=== PATIENT | male | born 1970 ===

== ENCOUNTER 2021-01-29 12:26 | Emergency (ER) | payer MEDICAID, SELFPAY ==
[2021-01-29 12:32] VITALS: BP 124/85; PULSE 84; RESP 18; TEMP 36.6; O2SAT 99
--- NOTE | 2021-01-29 13:24 | ED.GENADULT ---
HPI - General Adult General Chief complaint: Skin/Abscess/Foreign Body Stated complaint: rash Time Seen by Provider: 01/29/21 13:23 Source: patient Mode of arrival: ambulatory Limitations: no limitations History of Present Illness HPI narrative: 50-year-old male is here today for complaining of rash to lower abdominal area and in good in all areas bilaterally. Patient reports that he has been seen by his PCP almost a week ago and was diagnosed with fungal rash. Was given clotrimazole cream and he reports that has been not helpful. Denies any drainage, reports pruritus. Patient has not taking Benadryl. No new soaps or laundry detergents. Patient reports that he keeps his clothes in the basement. No other areas on his body is is affected. Onset (ago): day(s) Location: abdomen (Lower abdomen and inguinal areas bilaterally) Quality: other (Pruritus) Pain Consistency: other (No pain) Associated symptoms: rash Related Data Previous Rx's Medication Instructions Recorded diphenhydramine HCl 25 mg capsule 25 mg PO TID PRN #30 cap 01/29/21 (Benadryl) nystatin-triamcinolone 100,000 1 appl TOPICAL BID #30 g 01/29/21 unit/g-0.1 % topical cream Allergies Allergy/AdvReac Type Severity Reaction Status Date / Time No Known Allergies Allergy Unverified 12/04/19 16:48 Review of Systems Review of Systems: Constitutional : No Weight loss, No Fever, No Chills, No Night Sweats, No Fatigue, No Malaise ENT/Mouth : No Hearing loss, No Ear Pain, No Nasal Congestion, No Sinus Pain, No Hoarseness, No sore throat, No Rhinorrhea, No Swallowing Difficulty Eyes: No Eye Pain, No Swelling, No Redness, No Foreign Body, No Discharge, No Vision Changes Cardiovascular : No Chest Pain, No SOB, No Dyspnea on Exertion, No Orthopnea, No Edema, No Palpitations Respiratory : No Cough, No Sputum, No Wheezing, No Smoke Exposure, No Dyspnea Gastrointestinal : No Nausea, No Vomiting, No Diarrhea, No Constipation, No abdominal Pain, No Hematochezia, No Melena Genitourinary : no irregular bleeding, No Dysuria, No Urinary Frequency, No Hematuria, No Urinary Incontinence, No Urgency, No Flank Pain, No Urinary Flow Changes, No Hesitancy Musculoskeletal : No joint pain, No Myalgias, No Joint Swelling Skin : No Skin Lesions, rash to lower abdomen and inguinal area bilaterally Neuro : No Weakness, No Numbness, No Paresthesias, No Loss of Consciousness, No Dizziness, No Headache Psych : No Anxiety/Panic, No Depression, No SI/HI/AH/VH, No Social Issues, Yes all other systems are reviewed and are negative PMFSH Social History Social History Advance Directives: No Advance Directives Information Provided: No Physical Exam Vital Signs: Vital Signs: Last Vital Signs Temp 97.8 F 01/29/21 12:32 Pulse 84 01/29/21 12:32 Resp 18 01/29/21 12:32 BP 124/85 01/29/21 12:32 Pulse Ox 99 01/29/21 12:32 Body Mass Index 30.0 Const: General: healthy appearing, no acute distress and well developed Nutritional Appearance: well nourished Orientation/consciousness: patient oriented x3 HENMT: Head: Yes normal to inspection, Yes normocephalic and Yes atraumatic Face and sinus: Yes normal facial exam Mouth: Normal oral and palatal mucosa present Throat: Yes posterior oropharynx normal, Yes tonsils normal and Yes uvula midline Eyes: General: appearance normal, both eyes and all related structures Neck: Neck: Yes normal visual inspection, Yes full ROM and Yes trachea midline Thyroid: Thyroid normal Resp: Effort & Inspection: normal respiratory effort, able to speak in complete sentences, no tracheal deviation and symmetric chest movement Auscultation: clear to auscultation bilaterally Cardio: Jugular venous distension: no JVD Rate: regular rate Rhythm: regular rhythm Heart sounds: S1 normal heart sound present, S2 normal heart sound present, no gallops and no murmurs GI: Inspection: Yes normal to inspection and No distended Palpation (GI): Soft to palpation, not firm, nontender and No hepatosplenomegaly present Auscultation: normal bowel sounds : General: Yes no CVA tenderness Back/Spine/Pelvis: Back: no CVA tenderness Skin: General skin exam: elasticity normal, turgor normal, dry skin and other (Fungal rash to lower abdomen and bilateral inguinal areas) Hair: normal Nails: normal Neuro: General: patient oriented x3 Psych: Appearance: grossly normal Mental Status: mental status grossly normal Speech and movement: Normal speech and movement present Affect: normal affect Attitude: cooperative Thought process: Normal thought process present Thought content: Normal thought content present Insight: Good insight present (Psych) Judgement: Good judgement present (Psych) Course Course Course Narrative: Inguinal and lower abdomen rash, seen by PCP 1 week ago and was put on clotrimazole. Patient reports that the cream is not working. Discussed with patient the importance of keeping the area dry. I will start him on nystatin/triamcinolone cream. If rash persists patient should go see industrial order clerk and follow-up with his PCP Discharge Plan Discharge Clinical Impression: Fungal dermatitis Patient Disposition: Home, Self-Care Instructions: Harsh Itch (ED) Additional Instructions: You were seen here today for fungal infection on your lower abdomen. You were given nystatin/triamcinolone cream. Please follow-up with your primary care doctor if your symptoms will not go away in 3-4 days despite the treatment. Please keep the area dry and clean. You may take Benadryl to decrease the itch. If your symptoms will continue you might need to see industrial order clerk Prescriptions: New diphenhydramine HCl [Benadryl] 25 mg capsule 25 mg PO TID PRN (Reason: itching) Qty: 30 RF: 0 nystatin-triamcinolone 100,000-0.1 unit/g-% cream 1 appl topical BID Qty: 30 RF: 0 Interventions: ED Discharge Assessment Last Done: 01/29/21 14:05 Discharge Date/Time: 01/29/21 14:05
[2021-01-29] MEDS: Nystatin/Triamcinolone Cream 15 GM TUBE 1 APPL TOPICAL (13:57)
== END 2021-01-29 14:05 | disposition home or self-care (01) ==
PROVIDERS: Emergency Provider Emergency Medicine Emergency Medical Services
DX: B36.9 Superficial mycosis, unspecified (principal); R21 Rash and other nonspecific skin eruption; Z79.899 Other long term (current) drug therapy
CPT/HCPCS: 99283

== ENCOUNTER 2021-02-16 11:15 | Outpatient (REF) | payer MEDICAID, SELFPAY | END 2021-02-16 11:16 | disposition home or self-care (01) | LOC: HO.LAB 11:15 | PROVIDERS: Visit Provider Internal Medicine | DX: Z20.822 Contact with and (suspected) exposure to COVID-19 (principal) | CPT/HCPCS: C9803; U0003; U0005 ==

== ENCOUNTER 2023-11-09 13:34 | Outpatient (AMB) | payer OTHER, SELFPAY ==
[2023-11-09 13:37] VITALS: BP 118/74; PULSE 68; O2SAT 97
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
== END 2023-11-09 14:10 | disposition home or self-care (01) ==
DX: Z00.00 Encounter for general adult medical examination without abnormal findings (principal); E78.00 Pure hypercholesterolemia, unspecified; R07.89 Other chest pain; R21 Rash and other nonspecific skin eruption
CPT/HCPCS: 99386

== ENCOUNTER 2023-11-16 09:09 | Outpatient (REF) | payer OTHER, SELFPAY ==
[2023-11-16 09:27] LABS: MANUAL DIFF FLAG NO
[2023-11-16 10:52] LABS: Basophils Percent Auto 0.7 % (0-2); Eosinophils Absolute Auto 0.4 X10*3/uL (0.0-0.4); Eosinophils Percent Auto 8.5 % (0-4); Hematocrit 42.3 % (42.0-52.0); Hemoglobin 14.8 g/dl (14.0-18.0); Imm Gran Abs Auto 0.01 X10*3/uL (0.00-0.03); Imm Gran Pct Auto 0.2 % (0.0-0.4); Lymphocytes Absolute Auto 1.1 X10*3/uL (1.2-4.9); Lymphocytes Percent Auto 24.5 % (20-40); Mean Corpuscular Hemoglobin 31.6 pg (27.0-33.0); Mean Corpuscular Volume 90.4 fL (80.0-98.0); Monocytes Absolute Auto 0.4 X10*3/uL (0.1-1.2); Monocytes Percent Auto 10.1 % (2-11); Neutrophils Absolute Auto 2.5 x10*3/uL (2.0-8.3); Platelet Count 210 X10*3/uL (160-400); Red Blood Count 4.68 X10*6/uL (4.60-5.80); Red Cell Distribution Width 12.2 % (11.0-16.0); White Blood Count 4.4 X10*3/uL (4.8-10.8)
[2023-11-16 12:04] LABS: Alanine Aminotransferase 20 U/L (0-40); Albumin Level 4.4 g/dL (3.5-5.0); Alkaline Phosphatase 51 U/L (39-117); Anion Gap 6 (12-20); Aspartate Amino Transferase 16 U/L (5-37); Bilirubin Total 0.5 mg/dL (0.0-1.0); Blood Urea Nitrogen 15 mg/dL (9-16); Calcium 9.6 mg/dL (8.4-10.2); Carbon Dioxide 30 mmol/L (22-29); Chloride 107 mmol/L (96-108); Cholesterol 243 mg/dL (<200); Estimated Glomerular Filt Rate > 60; Glucose Random 86 mg/dL (60-115); HDL Cholesterol 42 mg/dL (>40); LDL Cholesterol Calculated 171 mg/dL (<100); Potassium 4.3 mmol/L (3.3-5.1); Sodium 139 mmol/L (135-145); Total Protein 7.7 g/dL (6.5-8.0); Triglycerides 150 mg/dL (<150)
[2023-11-16 12:19] LABS: Folate 10.9 ng/mL (> or = 4.0); Prostate Specific Antigen Scr 0.45 ng/mL (<0.05-4.0); Vitamin B12 309 pg/mL (200-900)
[2023-11-16 12:26] LABS: Free T4 (Free Thyroxine) 0.71 ng/dL (0.71-1.85); TSH reflex Free T4 1.74 uIU/mL (0.32-4.0)
[2023-11-22 15:13] LABS: Vitamin D 25-OH, D2 <4 ng/mL; Vitamin D 25-OH, D3 25 ng/mL; Vitamin D 25-OH, Total 25 ng/mL (30-100)
== END 2023-11-16 09:10 | disposition home or self-care (01) ==
LOC: HO.LAB 09:09
DX: Z00.00 Encounter for general adult medical examination without abnormal findings (principal); Z12.5 Encounter for screening for malignant neoplasm of prostate
CPT/HCPCS: 36415; 80053; 80061; 82306; 82607; 82746; 84153; 84439; 84443; 85025

== ENCOUNTER 2024-01-15 08:50 | Outpatient (REF) | payer OTHER, SELFPAY ==
--- NOTE | 2024-01-15 09:21 | PFT_ITS ---
Indication: Not available Spirometry [FEV1 to FVC 85%; FEV1 2.28 L; FVC 2.69 L. No significant response to bronchodilators noted. FEF 08/05/2074 is down to 53% predicted. ] Lung Volumes [Total lung capacity 68% predicted; expiratory reserve volume 46% predicted] Diffusion Capacity [DLCO 84% predicted] Comparisons [None] Interpretation [There is any restrictive ventilatory defect consistent with moderate restrictive lung disease. Etiology of this restriction is not clear at this time. No evidence of any obstruction and no significant response to bronchodilators noted. Although there is some evidence of small airways disease. The patient does have a mild diffusion impairment, although, it does correct to normal when corrected for the alveolar volume. Further imaging warranted. Would recommend pulmonary consultation. Clinical correlation warranted.] MTDD
[2024-01-15 10:14] VITALS: PULSE 60; RESP 16; O2SAT 99
== END 2024-01-15 08:51 | disposition home or self-care (01) ==
LOC: HO.RESP 08:50
DX: R07.89 Other chest pain (principal); R06.02 Shortness of breath
CPT/HCPCS: 94010; 94640; 94727; 94729

== ENCOUNTER → 2024-01-15 09:21 | Outpatient (BNV) | payer OTHER, SELFPAY | PROVIDERS: Visit Provider Hospitalist | DX: R06.02 Shortness of breath (principal); R07.89 Other chest pain | CPT/HCPCS: 94060; 94727; 94729 ==

== ENCOUNTER 2024-02-26 14:19 | Outpatient (AMB) | payer OTHER, SELFPAY ==
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
[2024-02-26 14:23] VITALS: BP 132/74; PULSE 62; O2SAT 97; BMI 35.0
== END 2024-02-26 14:50 | disposition home or self-care (01) ==
DX: R06.02 Shortness of breath (principal); E78.00 Pure hypercholesterolemia, unspecified

== ENCOUNTER 2024-03-05 15:14 | Outpatient (AMB) | payer OTHER, SELFPAY ==
[2024-03-05 15:15] VITALS: BP 102/62; PULSE 73; O2SAT 98; BMI 30.2
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
== END 2024-03-05 15:44 | disposition home or self-care (01) ==
PROVIDERS: Visit Provider Internal Medicine Pulmonary Disease
DX: R94.2 Abnormal results of pulmonary function studies (principal); R06.09 Other forms of dyspnea; J84.9 Interstitial pulmonary disease, unspecified; R07.89 Other chest pain
CPT/HCPCS: 99204

== ENCOUNTER → 2024-03-05 15:14 | Outpatient (BNVA) | payer OTHER, SELFPAY | PROVIDERS: Visit Provider Internal Medicine Pulmonary Disease ==

== ENCOUNTER 2024-04-08 13:13 | Outpatient (REF) | payer OTHER, SELFPAY ==
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
--- OUTSIDE RECORDS SUMMARY | 2024-04-08 14:58 | XMS_ITS | Clinical Summary ---
Author Organization [employer] Address [address] [place] [address] Care Team Providers Care Psychologists Name Role Phone Krysta Davis Primary Care Provider [phone] Social History Tobacco Use Types Packs/Day Years Used Date Smoking Tobacco: Never Assessed Sex and Gender Information Value Date Recorded Sex Assigned at Male 01/16/2022 10:16 AM EDT Legal Sex Male 10:16 AM EDT Gender Identity Male 01/16/2022 10:16 AM EDT Sexual Orientation Choose not to disclose 2021 10:16 AM EDT Last Filed Vital Signs Vital Sign Reading Time Taken Comments Blood Pressure 116/70 09/29/2021 12:07 AM EDT Pulse 67 09/29/2021 12:07 AM EDT Temperature - - Respiratory Rate - - Oxygen Saturation - - Inhaled Oxygen Concentration - - Weight 80.6 kg (177 lb 12.8 oz) 022 12:07 AM EDT Height 164.5 cm (5' 4.75 ) 09/29/2021 1 2:07 AM EDT Body Mass Index 29.81 09/29/2021 12:07 AM EDT Plan of Treatment Health Maintenance Due Date Last Done Comments CT Colonography 1972 Colonoscopy 1972 Colorectal Cancer Screening 1972 Depression Screening 1972 FIT DNA/Cologuard 1972 FIT 1972 FOBT 1972 SDOH Screening 1972 Sigmoidoscopy 1972 Alcohol/Substance Use Screening 1984 Tobacco Screening 1984 Hepatitis B Vaccines (1 of 3 - 19+ 3-dose series) 12/11/1991 Dental X-Ray: Full Mouth 11/25/2013 11/24/2010 Dental Oral Exam 06/09/2016 2015, , 01/03/2013, Additional history exists Dental X-Ray: Bitewings 2016 12/10/19 16, 12/06/2012, 11/24/2010 Dental Prophylaxis 11/02/2017 05/04/2017, 0 10/30/2016, 02/04/2016, Additional history exists Zoster Vaccines (1 of 2) 2022 COVID-19 Vaccine (3 - season) 2023 07/28/2020, 06/30/2020 Influenza Vaccine (#1) 2023 03/02/2021 Lipid Panel 03/08/2026 03/08/2021 DTaP/Tdap/Td Vaccines (3 - Td or Tdap) 03/02/2031 03/02/2021, 03/31/2016 RSV Patients and Patients Aged 60 years or older (1 - 1-dose 75+ series) 12/11/2047 HIV Screening Completed 03/08/2021 Hepatitis C Screening Completed 03/08/2021 HIB Vaccines Aged Out No longer eligi ble based on patient's age to complete this topic HPV Vaccines Aged Out No longer eligi ble based on patient's age to complete this topic Hepatitis A Vaccines Aged Out No long er eligible based on patient's age to complete this topic IPV Vaccines Aged Out No longer eligi ble based on patient's age to complete this topic Meningococcal Vaccine Aged Out No kim jemal eligible based on patient's age to complete this topic Pneumococcal Vaccine: Pediatrics (0 to 5 Years) and At-Risk Patients (6 to 64 Years) Aged Out No longer eligible based on patient's age to complete this topic RSV under 20 months Aged Out No longe r eligible based on patient's age to complete this topic Rotavirus Vaccines Aged Out No longer eligible based on patient's age to complete this topic Procedures Procedure Name Priority Date/Time Associated Diagnosis Comments ZZZ HISTORICAL HEPATITIS C AB W/REFL TO HCV RNA, QN, PCR Routine 03/08/2021 9:56 AM EST HIV 1/2 ANTIGEN/ANTIBODY, FOURTH GENERATION W/RFL Routine 03/08/2021 9:56 AM EST LIPID PANEL, STANDARD Routine 03/08/2021 9:56 AM EST PROPHYLAXIS - ADULT Routine 05/04/2017 1 2:00 AM EST BITEWINGS - 4 RADIOGRAPHIC IMAGES Routine 2015 12:00 AM EDT PERIODIC ORAL EVALUATION - ESTABLISHED PATIENT Routine 2015 12:00 AM EDT DIAGNOSTIC - DIAGNOSTIC IMAGING - INTRAORAL - COMPREHENSIVE SERIES OF RADIOGRAPHIC IMAGES Routine 11/24/2010 12:00 AM EDT from Last 3 Months or Most Recently Relevant to Health Maintenance Results * HEPATITIS C AB W/REFL TO HCV RNA, QN, PCR (03/08/2021 9:56 AM EST) HEPATITIS C ANTIBODY NON-REACT TYRONE NON-REACT TYRONE [facility] INDEX 0.01 <1.00 [facility] Comment: ?? HCV antibody was non-reactive. There is no laboratory ?? evidence of HCV infection. ?? In most cases, no further action is required. However, if recent HCV exposure is suspected, a test for HCV RNA (test code 53859) is suggested. ?? For additional information please refer to http://education.PassHat/faq/KFE93q8 (This link is being provided for informational/ educational purposes only.) ?? 03/08/2021 9:56 AM EST us Dejah Good MD HISTORICAL/NON ORDERABLE LAB S Final Result Performing Organization Address City/State/[facility] Co de Phone Number [facility] [address] * HIV 1/2 ANTIGEN/ANTIBODY,FOURTH GENERATION W/RFL (03/08/2021 9:56 AM EST) HIV-1/2 ANTIGEN AND ANTIBODIES, 4TH GENERATION W/ REFLEX NON-REACT TYRONE NON-REACT TYRONE [facility] Comment: HIV-1 antigen and HIV-1/HIV-2 antibodies were not detected. There is no laboratory evidence of HIV infection. ?? PLEASE NOTE: This information has been disclosed to you from records whose confidentiality may be protected by state law. ??If your state requires such protection, then the state law prohibits you from making any further disclosure of the information without the specific written consent of the person to whom it pertains, or as otherwise permitted by law. A general authorization for the release of medical or other information is NOT sufficient for this purpose. ? For additional information please refer to http://SeatID.PassHat/faq/UNL682 (This link is being provided for informational/ educational purposes only.) ? The performance of this assay has not been clinically validated in patients less than 2 years old. ?? 03/08/2021 9:56 AM EST us Dejah Good MD LAB BLOOD ORDERABLES Final R esult [facility] [address] * (ABNORMAL) LIPID PANEL, STANDARD (03/08/2021 9:56 AM EST) Chol/HDLC Ratio 6.3(H) <5.0 (calc) [facility] Cholesterol, Total 239(H) <200 mg/dL [facility] HDL Cholesterol 38(L) > OR = 40 mg/dL [facility] LDL Cholesterol 170(H) mg/dL (calc) [facility] Comment: Reference range: <100 ?? Desirable range <100 mg/dL for primary prevention; ?? <70 mg/dL for patients with CHD or diabetic patients ?? with > or = 2 CHD risk factors. ?? LDL-C is now calculated using the Warren ?? calculation, which is a validated novel method providing ?? better accuracy than the Friedewald equation in the ?? estimation of LDL-C. ?? Elfego BRAY et al. JASMIN. 2013;310(19): 6348-7975 ?? (http://SeatID.Risktail/faq/IMF390) Non-HDL Cholesterol 201(H) <130 mg/dL (calc) [facility] Comment: For patients with diabetes plus 1 major ASCVD risk ?? factor, treating to a non-HDL-C goal of <100 mg/dL ?? (LDL-C of <70 mg/dL) is considered a therapeutic ?? option. Triglycerides 160(H) <150 mg/dL [facility] 03/08/2021 9:56 AM EST us Dejah Good MD LAB BLOOD ORDERABLES Final R esult [facility] [address] from Last 3 Months or Most Recently Relevant to Health Maintenance Insurance DENTAL - HSN FULL (MEDICAID) Care Teams Psychologists Relationship Specialty Start Date End Date Krysta Davis ANP [address] [place] [id number] PCP - General Family Medicine 11/30/22
== END 2024-04-08 13:14 | disposition home or self-care (01) ==
LOC: HO.XRAY 13:13
PROVIDERS: Visit Provider Internal Medicine Pulmonary Disease
DX: R06.02 Shortness of breath (principal)
CPT/HCPCS: 71046

== ENCOUNTER → 2024-04-08 13:19 | Outpatient (BNV) | payer OTHER, SELFPAY | PROVIDERS: Visit Provider Radiology Diagnostic Radiology | DX: R06.02 Shortness of breath (principal) | CPT/HCPCS: 71046 ==

== ENCOUNTER 2024-04-11 13:28 | Outpatient (REF) | payer OTHER, SELFPAY ==
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
--- OUTSIDE RECORDS SUMMARY | 2024-04-11 15:12 | XMS_ITS | Clinical Summary ---
Author Organization [employer] Address [address] [facility] [facility] [address] [place] [address] Care Team Providers Care [employer] Name Role Phone Krysta Davis Primary Care Provider [phone] Social History Tobacco Use Types Packs/Day Years [...] Alcohol/Substance Use Screening 1984 Tobacco Screening 1984 Family Planning (PISQ) 12/11/1987 Hepatitis B Vaccines (1 of 3 - 19+ 3-dose series) 12/11/1991 Dental X-Ray: Full Mouth 11/25/2013 11/24/2010 Dental Oral Exam 06/09/2016 2015, , 01/03/2013, Additional history exists Dental X-Ray: Bitewings 2016 12/10/19 16, 12/06/2012, 11/24/2010 Dental Prophylaxis 11/02/2017 05/04/2017, 0 10/30/2016, 02/04/2016, Additional history exists Zoster Vaccines (1 of 2) 2022 COVID-19 Vaccine (3 - 2023- season) 2023 07/28/2020, 06/30/2020 Influenza Vaccine (#1) [...] HEPATITIS C ANTIBODY NON-REACT TYRONE NON-REACT TYRONE [facility] INDEX 0.01 <1.00 [facility] Comment: ?? HCV antibody was non-reactive. There is no laboratory ?? evidence of HCV infection. ?? In most cases, no further action is required. However, if recent HCV exposure is suspected, a test for HCV RNA (test code 55208) is suggested. ?? For additional information please refer to http://education.JBI Fish & Wings.Expand Networks/faq/NIT15w3 (This link is being provided for informational/ educational purposes only.) ?? 03/08/2021 9:56 AM EST us Dejah Good MD HISTORICAL/NON ORDERABLE LAB S Final Result [facility] [address] * HIV 1/2 ANTIGEN/ANTIBODY,FOURTH GENERATION W/RFL (03/08/2021 9:56 AM EST) HIV-1/2 ANTIGEN AND ANTIBODIES, 4TH GENERATION W/ REFLEX NON-REACT TYRONE NON-REACT TYRONE [facility] Comment: HIV-1 antigen and HIV-1/HIV-2 [...] ? For additional information please refer to http://Sunnyloft.Jobfox/faq/KCG233 (This link is being provided for informational/ educational purposes only.) ? The performance of this assay has not been clinically validated in patients less than 2 years old. ?? 03/08/2021 9:56 AM EST us Dejah Good MD LAB BLOOD ORDERABLES Final R esult Performing Organization Address City/State/[facility] Co de Phone Number [facility] [address] * (ABNORMAL) LIPID PANEL, STANDARD (03/08/2021 [...] ?? Elfego BRAY et al. JASMIN. 2013;310(19): 1464-8623 ?? (http://education.Predictvia.Expand Networks/faq/RYT539) Non-HDL Cholesterol 201(H) <130 mg/dL (calc) [facility] Comment: For patients with diabetes plus 1 major ASCVD risk ?? factor, treating to a non-HDL-C goal of <100 mg/dL ?? (LDL-C of <70 mg/dL) is considered a therapeutic ?? option. Triglycerides 160(H) <150 mg/dL [facility] 03/08/2021 9:56 AM EST us Dejah Good MD LAB BLOOD ORDERABLES Final R esult [facility] [address] from Last 3 Months or Most Recently Relevant to Health Maintenance Insurance DENTAL - HSN FULL (MEDICAID) Care Teams [employer] Relationship Specialty Start Date End Date Krysta Davis ANP [address] [place] [phone] PCP - General Family Medicine 11/30/22
== END 2024-04-11 13:29 | disposition home or self-care (01) ==
LOC: HO.CT 13:28
PROVIDERS: Visit Provider Internal Medicine Pulmonary Disease
DX: J84.9 Interstitial pulmonary disease, unspecified (principal)
CPT/HCPCS: 71250

== ENCOUNTER → 2024-04-11 13:30 | Outpatient (BNV) | payer OTHER, SELFPAY | PROVIDERS: Visit Provider Radiology Diagnostic Radiology | DX: J84.9 Interstitial pulmonary disease, unspecified (principal) | CPT/HCPCS: 71250 ==

== ENCOUNTER 2024-04-15 14:29 | Outpatient (AMB) | payer OTHER, SELFPAY ==
[2024-04-15 14:32] VITALS: BP 106/62; PULSE 62; O2SAT 97; BMI 29.3
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
--- OUTSIDE RECORDS SUMMARY | 2024-04-15 15:22 | XMS_ITS | Clinical Summary ---
Author Organization [employer] Address [address] [facility] [address] [place] [address] Care Team Providers Care Spray Maker Name Role Phone Krysta Davis Primary Care Provider [phone] Social History Tobacco Use Types Packs/Day Years [...] HEPATITIS C ANTIBODY NON-REACT TYRONE NON-REACT TYRONE [facility] INDEX 0.01 <1.00 [facility] Comment: ?? HCV antibody was non-reactive. There is no laboratory ?? evidence of HCV infection. ?? In most cases, no further action is required. However, if recent HCV exposure is suspected, a test for HCV RNA (test code 74354) is suggested. ?? For additional information please refer to http://education.DiObex.Dering Hall/faq/MCA52n7 (This link is being provided for informational/ educational purposes only.) ?? 03/08/2021 9:56 AM EST us Dejah Good MD HISTORICAL/NON ORDERABLE LAB S Final Result [facility] [address] * HIV 1/2 ANTIGEN/ANTIBODY,FOURTH GENERATION W/RFL (03/08/2021 9:56 AM EST) HIV-1/2 ANTIGEN AND ANTIBODIES, 4TH GENERATION W/ REFLEX NON-REACT TYRONE NON-REACT TYRONE [facility] Comment: HIV-1 antigen and HIV-1/HIV-2 [...] ? For additional information please refer to http://Ocutec.ideasoft/faq/KZB003 (This link is being provided for informational/ educational purposes only.) ? The performance of this assay has not been clinically validated in patients less than 2 years old. ?? 03/08/2021 9:56 AM EST us Dejah Good MD LAB BLOOD ORDERABLES Final R esult Performing Organization Address City/State/[facility] Co de Phone Number [facility] [address] * (ABNORMAL) LIPID PANEL, STANDARD (03/08/2021 [...] ?? Elfego BRAY et al. JASMIN. 2013;310(19): 2072-3553 ?? (http://education.Luv Rink.[employer]/faq/THK944) Non-HDL Cholesterol 201(H) <130 mg/dL (calc) [facility] Comment: For patients with diabetes plus 1 major ASCVD risk ?? factor, treating to a non-HDL-C goal of <100 mg/dL ?? (LDL-C of <70 mg/dL) is considered a therapeutic ?? option. Triglycerides 160(H) <150 mg/dL [facility] 03/08/2021 9:56 AM EST us Dejah Good MD LAB BLOOD ORDERABLES Final R esult [facility] [address] from Last 3 Months or Most Recently Relevant to Health Maintenance Insurance DENTAL - HSN FULL (MEDICAID) Care Teams Spray Maker Relationship Specialty Start Date End Date Krysta Davis ANP [address] [place] [phone] PCP - General Family Medicine 11/30/22
== END 2024-04-15 14:51 | disposition home or self-care (01) ==
PROVIDERS: Visit Provider Internal Medicine Pulmonary Disease
DX: R94.2 Abnormal results of pulmonary function studies (principal); R06.09 Other forms of dyspnea
CPT/HCPCS: 99214

== ENCOUNTER 2024-05-22 08:43 | Outpatient (REF) | payer OTHER, SELFPAY ==
--- OUTSIDE RECORDS SUMMARY | 2024-05-22 09:23 | XMS_ITS | Clinical Summary ---
Author Organization [email or web address] Address [address] [facility] [address] [place] [address] Care Team Providers Care Terrazzo Finisher Name Role Phone Krysta Davis Primary Care Provider [phone] Social History Tobacco Use Types Packs/Day Years [...] 05/04/2017, 0 10/30/2016, 02/04/2016, Additional history exists Pneumococcal Vaccine: 50+ Years (1 of 1 - PCV) 2022 Zoster Vaccines (1 of 2) 2022 COVID-19 [...] 5 Years) and At-Risk Patients (6 to 49) Years) Aged Out No longer eligible based [...] ESTABLISHED PATIENT Routine 2015 12:00 AM EDT INTRAORAL - COMPLETE SERIES OF RADIOGRAPHIC IMAGES Routine 11/24/2010 12:00 AM EDT from Last 3 Months or Most Recently Relevant to Health Maintenance Results * HEPATITIS C AB W/REFL TO HCV RNA, QN, PCR (03/08/2021 9:56 AM EST) HEPATITIS C ANTIBODY NON-REACT TYRONE NON-REACT TYRONE [facility] INDEX 0.01 <1.00 [facility] Comment: ?? HCV antibody was non-reactive. There is no laboratory ?? evidence of HCV infection. ?? In most cases, no further action is required. However, if recent HCV exposure is suspected, a test for HCV RNA (test code 22773) is suggested. ?? For additional information please refer to http://education.WeatherNation TV/faq/ETV44q4 (This link is being provided for informational/ educational purposes only.) ?? 03/08/2021 9:56 AM EST us Dejah Good MD HISTORICAL/NON ORDERABLE LAB S Final Result [facility] [address] * HIV 1/2 ANTIGEN/ANTIBODY,FOURTH GENERATION W/RFL (03/08/2021 9:56 AM EST) HIV-1/2 ANTIGEN AND ANTIBODIES, 4TH GENERATION W/ REFLEX NON-REACT TYRONE NON-REACT TYRONE [facility] Comment: HIV-1 antigen and HIV-1/HIV-2 [...] ? For additional information please refer to http://Goodmail Systems.WeatherNation TV/faq/WGK178 (This link is being provided for informational/ educational purposes only.) ? The performance of this assay has not been clinically validated in patients less than 2 years old. ?? 03/08/2021 9:56 AM EST us Dejah Good MD LAB BLOOD ORDERABLES Final R esult [facility] [address] * (ABNORMAL) LIPID PANEL, STANDARD (03/08/2021 [...] in the ?? estimation of LDL-C. ?? Eflego BRAY et al. JASMIN. 2013;310(19): 5012-3706 ?? (http://Goodmail Systems.RedBee/faq/BEK089) Non-HDL Cholesterol 201(H) <130 mg/dL (calc) [facility] Comment: For patients with diabetes plus 1 major ASCVD risk ?? factor, treating to a non-HDL-C goal of <100 mg/dL ?? (LDL-C of <70 mg/dL) is considered a therapeutic ?? option. Triglycerides 160(H) <150 mg/dL [facility] 03/08/2021 9:56 AM EST us Dejah Good MD LAB BLOOD ORDERABLES Final R esult [facility] [address] from Last 3 Months or Most Recently Relevant to Health Maintenance Insurance DENTAL - HSN FULL (MEDICAID) Care Teams Terrazzo Finisher Relationship Specialty Start Date End Date Krysta Davis ANP [address] [place] [phone] PCP - General Family Medicine 11/30/22
[2024-05-22 09:52] LABS: Estimated Average Glucose 100 mg/dL; Hemoglobin A1C 121.8507 umol/L; Hemoglobin A1c % 5.1 % (<6.0); Total Hemoglobin (HGBA1C) 3724.0318 umol/L
[2024-05-22 11:04] LABS: Cholesterol 193 mg/dL (<200); HDL Cholesterol 42 mg/dL (>40); LDL Cholesterol Calculated 125 mg/dL (<100); Triglycerides 132 mg/dL (<150)
== END 2024-05-22 08:44 | disposition home or self-care (01) ==
LOC: HO.LAB 08:43
DX: E11.65 Type 2 diabetes mellitus with hyperglycemia (principal); E78.00 Pure hypercholesterolemia, unspecified
CPT/HCPCS: 36415; 80061; 83036

== ENCOUNTER 2024-05-27 14:10 | Outpatient (AMB) | payer OTHER, SELFPAY ==
[2024-05-27 14:20] VITALS: BP 104/64; PULSE 54; RESP 16; TEMP 36.9; O2SAT 96; BMI 28.9
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
--- OUTSIDE RECORDS SUMMARY | 2024-05-27 17:26 | XMS_ITS | Clinical Summary ---
Author Organization [employer] Address [address] [facility] [address] [place] [address] Care Team Providers Care Billiard Table Repairer Name Role Phone Krysta Davis Primary Care Provider [phone] Social History Tobacco Use Types Packs/Day Years [...] a test for HCV RNA (test code 84046) is suggested. ?? For additional information please refer to http://education.CLASEMOVIL/faq/VIA80n6 (This link is being provided for informational/ educational purposes only.) ?? 03/08/2021 9:56 AM EST us Dejah Good MD HISTORICAL/NON ORDERABLE LAB S Final Result [facility] [address] * HIV 1/2 ANTIGEN/ANTIBODY,FOURTH GENERATION W/RFL [...] ? For additional information please refer to http://Anbado Video.CLASEMOVIL/faq/GHH735 (This link is being provided for informational/ educational purposes only.) ? The performance of this assay has not been clinically validated in patients less than 2 years old. ?? 03/08/2021 9:56 AM EST us Dejah Good MD LAB BLOOD ORDERABLES Final R esult [facility] [address] * (ABNORMAL) LIPID PANEL, STANDARD (03/08/2021 [...] ?? Elfego BRAY et al. JASMIN. 2013;310(19): 7607-7345 ?? (http://Anbado Video.[employer]/faq/RWI846) Non-HDL Cholesterol 201(H) <130 mg/dL (calc) [facility] [...] esult [facility] [address] from Last 3 Months or Most Recently Relevant to Health Maintenance Insurance DENTAL - HSN FULL (MEDICAID) Care Teams Billiard Table Repairer Relationship Specialty Start Date End Date Krysta Davis ANP [address] [place] [id number] PCP - General Family Medicine 11/30/22
== END 2024-05-27 14:41 | disposition home or self-care (01) ==
LOC: HO.HMCH 14:10
DX: E78.00 Pure hypercholesterolemia, unspecified (principal); R07.89 Other chest pain; R94.2 Abnormal results of pulmonary function studies

== ENCOUNTER → 2024-05-27 14:10 | Outpatient (BNVA) | payer OTHER, SELFPAY | DX: E78.00 Pure hypercholesterolemia, unspecified (principal); R07.89 Other chest pain; R94.2 Abnormal results of pulmonary function studies | CPT/HCPCS: 96127 ==

== ENCOUNTER 2024-06-13 15:16 | Outpatient (AMB) | payer OTHER, SELFPAY ==
[2024-06-13 15:20] VITALS: BP 102/64; PULSE 54; O2SAT 97; BMI 28.7
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
== END 2024-06-13 15:31 | disposition home or self-care (01) ==
LOC: HO.HPS 15:16
PROVIDERS: Visit Provider Internal Medicine Pulmonary Disease
DX: R06.09 Other forms of dyspnea (principal)
CPT/HCPCS: 99213

== ENCOUNTER → 2024-07-01 14:35 | Outpatient (REF) | payer OTHER, SELFPAY ==
--- NOTE | 2024-07-01 14:38 | CA_ITS ---
Transthoracic Echocardiogram Patient (Last, First, Middle): Brett Wan, Gender: Male Date of : 1970 Age: 53 Procedure Date: 07/01/2024 Procedure Type: Transthoracic Echocardiogram Location: OP Height: 162.56 cm Weight: 77.11 kg BSA: 1.83 m2 Heart Rate: bpm BP: 135 / 70 mmHg Lead Security Officer: CP/RC Referring MD: Ole Saucedo MD Smash Fixer: Jacob Salmeron MD Symptoms: R06.09 - Other forms of dyspnea Study Quality: Fair, contrast ECG Rhythm: Sinus Conclusions: - 1. Normal LV ejection fraction of 60-65% with grade 1 diastolic dysfunction 2. Normal cardiac valvular Dopplers 3. Normal RV systolic pressure 4. No gross pericardial effusion Findings Procedure Information Contrast agent, definity, is being given per protocol without apparent complications. Left Ventricle Normal left ventricular size, thickness, and systolic function. The visually estimated ejection fraction is between 60-65%. Spectral Doppler is indicative of an impaired relaxation filling pattern. E/E prime ratio is <8, consistent with normal filling pressures. Evidence suggests grade I (mild) diastolic dysfunction. Right Ventricle Normal right ventricular cavity size and systolic function. Atria The left atrium is normal in size. There is no evidence of interatrial shunt. The right atrium is normal in size. Aortic Valve The aortic valve structure and function is likely normal. There is no aortic valve stenosis. There is no aortic valve regurgitation. Mitral Valve Normal mitral valve structure and function. There is trace mitral valve regurgitation. There is no mitral valve stenosis. Pulmonic Valve The pulmonic valve was not well visualized. Tricuspid Valve Likely normal tricuspid valve structure and function. There is trace tricuspid valve regurgitation. The right ventricular systolic pressure is normal. The right ventricular systolic pressure is 18 mmHg. Normal right atrial pressure. There is no evidence of pulmonary hypertension. Great Vessels All visible segments of the aorta are normal in size. The pulmonary artery was not well visualized. There is no dilatation of the ascending aorta measuring 2.90 cm. Venous The inferior vena cava is normal in size and collapses greater than 50% with inspiration. Pericardium/Pleural There is no evidence of pericardial effusion. Prior Study Comparison No prior study available for comparison. Measurements 2D Linear Measurements IVSd: 0.88 0.6-0.9/0.6-1.0 cm LVIDd: 4.23 3.9-5.3/4.2-5.9 cm LVIDd Index: 2.31 2.4-3.2/2.2-3.1 cm/m2 LVIDs: 2.24 2.0-3.6 cm LVPWd: 0.78 0.7-1.1 cm LA Diam: 3.20 2.7-3.8/3.0-4.0 cm LAIDs Index: 1.75 1.5-2.3 cm/m2 LV Mass: 133.69 67-162/88-224 g LV Mass Index: 73.05 43-95/49-115 g/m2 LVOT Diam: 1.80 3.0+(-)1.3 cm 2D Systolic Function EF 4C: 58.90 >55% EF 2C: 68.10 >55% EF BiP: 61.30 >55% Mitral Valve MV Pk E: 0.83 MV PK A: 0.66 MV Decel Time: 239.00 E/A: 1.20 E'Lateral: 11.40 E'Medial: 8.70 E/E' Med: 9.50 E/E' Lat: 7.30 PHT: 70.00 MVA PHT: 3.14 Decel [place]: 3.46 Aortic Valve AoV Pk Ronny: 1.61 AoV Mn Ronny: 1.08 AoV VTI: 0.40 AoV Pk Grad: 10.00 Aov Mn Grad: 5.00 BRYAN Cont.VTI: 2.00 LVOT LVOT Pk Ronny: 1.37 LVOT Mn Ronny: 0.82 LVOT VTI: 0.31 LVOT Pk Grad: 8.00 LVOT Mn Grad: 3.00 LVOT Diam: 1.80 LVOT Area: 2.54 Diastolic Function MV Pk E: 0.83 MV Pk A: 0.66 E/A: 1.20 E'Medial: 8.70 E/E' Med: 9.50 E' Laterial: 11.40 E/E' Lat: 7.30 Right Ventricle TAPSE (mm): 26.10 TVS' Ronny: 10.30 Tricuspid Valve TR Pk Ronny: 1.93 TR Pk Grad: 15.00 RA Press: 3.00 RVSP: 18.00 Great Vessels Aorta Sinus of Valsalva: 2.80 2.0-3.5 cm Ao Asc: 2.90 2.1-3.4 cm Pulmonary Valve PV Pk Ronny: 0.76 Peak PV Grad: 2.00 Updated in Other Vendor System with Status of Final Jacob Salmeron MD electronically signed on 07/01/2024 4:49:52 PM with status of Final
--- OUTSIDE RECORDS SUMMARY | 2024-07-01 17:49 | XMS_ITS | Clinical Summary ---
Author Organization [employer] Address [address] [place] [address] Care Team Providers Care Charter Boat Operator Name Role Phone Krysta Davis Primary Care Provider [phone] Social History Tobacco Use Types Packs/Day Years [...] HEPATITIS C ANTIBODY NON-REACT TYRONE NON-REACT TYRONE [facility] INDEX 0.01 <1.00 [facility] Comment: ?? HCV antibody was non-reactive. There is no laboratory ?? evidence of HCV infection. ?? In most cases, no further action is required. However, if recent HCV exposure is suspected, a test for HCV RNA (test code 98546) is suggested. ?? For additional information please refer to http://education.Good Photo/faq/SQE30v5 (This link is being provided for informational/ educational purposes only.) ?? 03/08/2021 9:56 AM EST us Dejah Good MD HISTORICAL/NON ORDERABLE LAB S Final Result [facility] [address] * HIV 1/2 ANTIGEN/ANTIBODY,FOURTH GENERATION W/RFL (03/08/2021 9:56 AM EST) HIV-1/2 ANTIGEN AND ANTIBODIES, 4TH GENERATION W/ REFLEX NON-REACT TYRONE NON-REACT TYRONE [facility] Comment: HIV-1 antigen and HIV-1/HIV-2 [...] ? For additional information please refer to http://Healthcare IT.Good Photo/faq/QBG297 (This link is being provided for informational/ educational purposes only.) ? The performance of this assay has not been clinically validated in patients less than 2 years old. ?? 03/08/2021 9:56 AM EST us Dejah Good MD LAB BLOOD ORDERABLES Final R esult [facility] [address] * (ABNORMAL) LIPID PANEL, STANDARD (03/08/2021 [...] ?? Elfego BRAY et al. JASMIN. 2013;310(19): 7505-2428 ?? (http://Healthcare IT.BitLit/faq/TYF159) Non-HDL Cholesterol 201(H) <130 mg/dL (calc) [facility] Comment: For patients with diabetes plus 1 major ASCVD risk ?? factor, treating to a non-HDL-C goal of <100 mg/dL ?? (LDL-C of <70 mg/dL) is considered a therapeutic ?? option. Triglycerides 160(H) <150 mg/dL [facility] 03/08/2021 9:56 AM EST us Dejah Good MD LAB BLOOD ORDERABLES Final R esult [facility] [address] from Last 3 Months or Most Recently Relevant to Health Maintenance Insurance DENTAL - HSN FULL (MEDICAID) Care Teams Charter Boat Operator Relationship Specialty Start Date End Date Krysta Davis ANP [address] [place] [id number] PCP - General Family Medicine 11/30/22
== END ==
LOC: HO.CARD 14:35
PROVIDERS: Visit Provider Internal Medicine Pulmonary Disease
DX: R06.09 Other forms of dyspnea (principal)
CPT/HCPCS: 93306; Q9957

== ENCOUNTER → 2024-07-01 14:38 | Outpatient (BNV) | payer OTHER, SELFPAY | PROVIDERS: Visit Provider Internal Medicine Cardiovascular Disease | DX: I51.89 Other ill-defined heart diseases (principal); R06.02 Shortness of breath | CPT/HCPCS: 93306 ==

== ENCOUNTER 2024-08-27 13:46 | Outpatient (AMB) | payer OTHER, SELFPAY ==
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
[2024-08-27 13:50] VITALS: BP 112/61; PULSE 69; RESP 18; O2SAT 96; BMI 28.8
== END 2024-08-27 14:16 | disposition home or self-care (01) ==
LOC: HO.HMCH 13:47
DX: R06.09 Other forms of dyspnea (principal); E78.00 Pure hypercholesterolemia, unspecified

== ENCOUNTER 2024-09-17 12:41 | Outpatient (AMB) | payer OTHER, SELFPAY ==
[2024-09-17 12:56] VITALS: BP 122/68; PULSE 60; BMI 28.8
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
--- OUTSIDE RECORDS SUMMARY | 2024-09-17 13:11 | XMS_ITS | Clinical Summary ---
Author Organization [employer] Address [address] [facility] [address] [place] [address] Care Team Providers Care Ui Developer Designer Name Role Phone Krysta Davis RHONDA Primary Care Provider Social History Tobacco Use Types Packs/Day Years [...] FOBT 1972 SDOH Screening 1972 Sigmoidoscopy 1972 Disability Screening 1972 Alcohol/Substance Use Screening 1984 Tobacco Screening [...] - season) 2023 07/28/2020, 06/30/2020 Influenza Vaccine (Season Ended) 2024 03/02/2021 Lipid Panel 03/08/2026 03/08/2021 DTaP/Tdap/Td Vaccines [...] patient's age to complete this topic Meningococcal B Vaccine Aged Out No l onger eligible based on patient's age to complete [...] C ANTIBODY NON-REACT TYRONE NON-REACT TYRONE [facility] INDEX 0.01 <1.00 [facility] Comment: HCV antibody was non-reactive. There is no laboratory evidence of HCV infection. In most cases, no further action is required. However, if recent HCV exposure is suspected, a test for HCV RNA (test code 49108) is suggested. For additional information please refer to http://education.CoTweet/faq/KZC27l6 (This link is being provided for informational/ educational purposes only.) 03/08/2021 9:56 AM EST us Dejah Good MD HISTORICAL/NON ORDERABLE LAB S Final Result Performing Organization Address City/State/[facility] Co de Phone Number [facility] [address] * HIV 1/2 ANTIGEN/ANTIBODY,FOURTH GENERATION W/RFL (03/08/2021 9:56 AM EST) HIV-1/2 ANTIGEN AND ANTIBODIES, 4TH GENERATION W/ REFLEX NON-REACT TYRONE NON-REACT TYRONE [facility] Comment: HIV-1 antigen and HIV-1/HIV-2 antibodies were not detected. There is no laboratory evidence of HIV infection. PLEASE NOTE: This information has been disclosed to you from records whose confidentiality may be protected by state law. If your state requires such protection, then the state law prohibits you from making any further disclosure of the information without the specific written consent of the person to whom it pertains, or as otherwise permitted by law. A general authorization for the release of medical or other information is NOT sufficient for this purpose. For additional information please refer to http://Beats Electronics.CoTweet/faq/NGA214 (This link is being provided for informational/ educational purposes only.) The performance of this assay has not been clinically validated in patients less than 2 years old. 03/08/2021 9:56 AM EST us Dejah Good MD LAB BLOOD ORDERABLES Final R esult [facility] [address] * (ABNORMAL) LIPID PANEL, STANDARD (03/08/2021 9:56 AM EST) Chol/HDLC Ratio 6.3(H) <5.0 (calc) [facility] Cholesterol, Total 239(H) <200 mg/dL [facility] HDL Cholesterol 38(L) > OR = 40 mg/dL [facility] LDL Cholesterol 170(H) mg/dL (calc) [facility] Comment: Reference range: <100 Desirable range <100 mg/dL for primary prevention; <70 mg/dL for patients with CHD or diabetic patients with > or = 2 CHD risk factors. LDL-C is now calculated using the Elfego-Bharathi calculation, which is a validated novel method providing better accuracy than the Friedewald equation in the estimation of LDL-C. Elfego BRAY et al. JASMIN. 2013;310(19): 9220-8905 (http://education.[employer] Corp.AppSense/faq/NFB752) Non-HDL Cholesterol 201(H) <130 mg/dL (calc) [facility] Comment: For patients with diabetes plus 1 major ASCVD risk factor, treating to a non-HDL-C goal of <100 mg/dL (LDL-C of <70 mg/dL) is considered a therapeutic option. Triglycerides 160(H) <150 mg/dL [facility] 03/08/2021 9:56 AM EST us Dejah Good MD LAB BLOOD ORDERABLES Final R esult [facility] [address] from Last 3 Months or Most Recently Relevant to Health Maintenance Insurance DENTAL - HSN FULL (MEDICAID) Care Teams Ui Developer Designer Relationship Specialty Start Date End Date Krysta Davis ANP [address] [place] [phone] PCP - General Family Medicine 11/30/22
== END 2024-09-17 13:25 | disposition home or self-care (01) ==
LOC: HO.HCS 12:42
PROVIDERS: Visit Provider Internal Medicine
DX: R06.09 Other forms of dyspnea (principal); R07.2 Precordial pain
CPT/HCPCS: 93010; 99204; G2211

== ENCOUNTER → 2024-09-17 12:41 | Outpatient (BNVA) | payer OTHER, SELFPAY | PROVIDERS: Visit Provider Internal Medicine | DX: R06.09 Other forms of dyspnea (principal); R07.2 Precordial pain | CPT/HCPCS: 93005 ==

== ENCOUNTER 2024-10-24 11:05 | Outpatient (REF) | payer OTHER, SELFPAY ==
--- OUTSIDE RECORDS SUMMARY | 2024-10-24 11:12 | XMS_ITS | Clinical Summary ---
Author Organization [employer] Address [address] [facility] 7[address] [place] [address] Care Team Providers Care Channel Lip Wetter Name Role Phone Krysta Davis Primary Care Provider Social History Tobacco Use [...] season) 2023 07/28/2020, 06/30/2020 Influenza Vaccine (#1) 2024 03/02/2021 Lipid Panel 03/08/2026 03/08/2021 DTaP/Tdap/Td [...] [facility] Comment: HCV antibody was non-reactive. There is no laboratory evidence of HCV infection. In most cases, no further action is required. However, if recent HCV exposure is suspected, a test for HCV RNA (test code 98250) is suggested. For additional information please refer to http://education.Kosan Biosciences/faq/TPV79n4 (This link is being provided for informational/ educational purposes only.) 03/08/2021 9:56 AM EST us Dejah Good MD HISTORICAL/NON ORDERABLE LAB S Final Result Performing Organization Address City/State/[facility] Co de Phone Number [facility] [address] * HIV 1/2 ANTIGEN/ANTIBODY,FOURTH GENERATION W/RFL [...] purpose. For additional information please refer to http://What's in My Handbag.Kosan Biosciences/faq/OJP626 (This link is being provided for informational/ educational purposes only.) The performance of this assay has not been clinically validated in patients less than 2 years old. 03/08/2021 9:56 AM EST us Dejah Good MD LAB BLOOD ORDERABLES Final R esult [facility] [address] * (ABNORMAL) LIPID PANEL, STANDARD (03/08/2021 [...] LDL-C. Elfego BRAY et al. JASMIN. 2013;310(19): 4858-6936 (http://education.PlusFourSix.Xelerated/faq/HES779) Non-HDL Cholesterol 201(H) <130 mg/dL (calc) [facility] [address] from Last 3 Months or Most Recently Relevant to Health Maintenance Insurance DENTAL - HSN FULL (MEDICAID) Care Teams Channel Lip Wetter Relationship Specialty Start Date End Date Krysta Davis ANP [address] [place] [phone] PCP - General Family Medicine 11/30/22
[2024-10-24 12:27] LABS: B Type Natriuretic Peptide < 10 pg/mL (<100)
[2024-10-24 12:30] LABS: Anion Gap 11 (12-20); Blood Urea Nitrogen 21 mg/dL (9-16); Calcium 9.4 mg/dL (8.4-10.2); Carbon Dioxide 31 mmol/L (22-29); Chloride 104 mmol/L (96-108); Cholesterol 212 mg/dL (<200); Estimated Glomerular Filt Rate > 60; HDL Cholesterol 45 mg/dL (>40); Potassium 4.7 mmol/L (3.3-5.1); Sodium 141 mmol/L (135-145); Triglycerides 139 mg/dL (<150)
== END 2024-10-24 11:06 | disposition home or self-care (01) ==
LOC: HO.LAB 11:05
PROVIDERS: Absent Provider Internal Medicine; Visit Provider Internal Medicine
DX: I50.9 Heart failure, unspecified (principal); E78.00 Pure hypercholesterolemia, unspecified; R07.2 Precordial pain
CPT/HCPCS: 36415; 80048; 80061; 83880

== ENCOUNTER → 2024-11-07 10:50 | Outpatient (REF) | payer OTHER, SELFPAY ==
--- OUTSIDE RECORDS SUMMARY | 2024-11-07 10:53 | XMS_ITS | Clinical Summary ---
Author Organization [employer] Address [address] [facility] [address] [place] [address] Care Team Providers Care Parliamentary Archivist Name Role Phone Krysta Davis Primary Care Provider [phone] Social History Tobacco Use Types Packs/Day Years [...] ANTIBODY NON-REACT TYRONE NON-REACT TYRONE [facility] INDEX 0.01 <1.00 [facility] Comment: HCV antibody was non-reactive. There is no laboratory evidence of HCV infection. In most cases, no further action is required. However, if recent HCV exposure is suspected, a test for HCV RNA (test code 29602) is suggested. For additional information please refer to http://education.Sekoia/faq/SZU25k1 (This link is being provided for informational/ educational purposes only.) 03/08/2021 9:56 AM EST us Dejah Good MD HISTORICAL/NON ORDERABLE LAB S Final Result Performing Organization Address City/State/[facility] Co de Phone Number [facility] [address] * HIV 1/2 ANTIGEN/ANTIBODY,FOURTH GENERATION W/RFL (03/08/2021 9:56 AM EST) HIV-1/2 ANTIGEN AND ANTIBODIES, 4TH GENERATION W/ REFLEX NON-REACT TYRONE NON-REACT TYRONE [facility] Comment: HIV-1 antigen and [...] purpose. For additional information please refer to http://LawBite.Sekoia/faq/SZK746 (This link is being provided for informational/ educational purposes only.) The performance of this assay has not been clinically validated in patients less than 2 years old. 03/08/2021 9:56 AM EST us Dejah Good MD LAB BLOOD ORDERABLES Final R esult [facility] [address] * (ABNORMAL) LIPID PANEL, STANDARD (03/08/2021 [...] LDL-C. Elfego BRAY et al. JASMIN. 2013;310(19): 6201-7216 (http://education.Skadoit.Bitnami/faq/VFS214) Non-HDL Cholesterol 201(H) <130 mg/dL (calc) [facility] Comment: For patients with diabetes plus 1 major ASCVD risk factor, treating to a non-HDL-C goal of <100 mg/dL (LDL-C of <70 mg/dL) is considered a therapeutic option. Triglycerides 160(H) <150 mg/dL [facility] 03/08/2021 9:56 AM EST us Dejah Good MD LAB BLOOD ORDERABLES Final R esult [facility] [address] from Last 3 Months or Most Recently Relevant to Health Maintenance Insurance DENTAL - HSN FULL (MEDICAID) Care Teams Parliamentary Archivist Relationship Specialty Start Date End Date Krysta Davis ANP [address] [place] [phone] PCP - General Family Medicine 11/30/22
--- NOTE | 2024-11-07 10:54 | CA_ITS ---
Acquisition Time: 2024-11-07 10:58:51 Total Exercise Time: 00:10:00 Test Indications: cp Medications: see h&p Protocol: ISRAEL Max HR: 162 BPM 95% of Pred: 169 BPM Max BP: 144/90 mmHG Max Work Load: 11.7 METS Exercise stress test with exercise 10 mins of [place] Protocol, achieving 94% MPHR, with reports of SOB, no chest pain, without any arrythmias, with normotensive response to exercise. Without any EKG chnages meeting criteria for ischemia. In recovery, pt's breathing improved to baseline. Echo images obtained by tech at rest and post peak exercise. Definity contrast utilized. Test reviewed with Dr. Salmeron. Referred By: Brayden Gutierrez Electronically Signed By: Mateo Jarrell
== END ==
LOC: HO.CARD 10:50
PROVIDERS: Visit Provider Internal Medicine
DX: R07.2 Precordial pain (principal)
CPT/HCPCS: 93350; Q9957

== ENCOUNTER → 2024-11-07 10:54 | Outpatient (BNV) | payer OTHER, SELFPAY | DX: R06.02 Shortness of breath (principal) | CPT/HCPCS: 93016; 93018; 93350; 93352 ==

== ENCOUNTER 2024-11-19 12:23 | Outpatient (REF) | payer OTHER, SELFPAY ==
[2024-11-19 13:07] LABS: Anion Gap 10 (12-20); Blood Urea Nitrogen 20 mg/dL (9-16); Calcium 9.3 mg/dL (8.4-10.2); Carbon Dioxide 30 mmol/L (22-29); Chloride 104 mmol/L (96-108); Estimated Glomerular Filt Rate 58; Potassium 4.0 mmol/L (3.3-5.1); Sodium 140 mmol/L (135-145)
--- OUTSIDE RECORDS SUMMARY | 2024-11-19 14:56 | XMS_ITS | Clinical Summary ---
Author Organization [employer] Address [address] [facility] [address]t [place] [address] Care Team Providers Care Instrument And Electrical Technician Name Role Phone Krysta Davis RHONDA Primary Care Provider [phone] Social History Tobacco Use Types Packs/Day Years [...] HEPATITIS C ANTIBODY NON-REACT TYRONE NON-REACT TYRONE [facility] INDEX 0.01 <1.00 [facility] Comment: HCV antibody was non-reactive. There is no laboratory evidence of HCV infection. In most cases, no further action is required. However, if recent HCV exposure is suspected, a test for HCV RNA (test code 74288) is suggested. For additional information please refer to http://education.Dot VN/faq/UPT57v3 (This link is being provided for informational/ educational purposes only.) 03/08/2021 9:56 AM EST us Dejah Good MD HISTORICAL/NON ORDERABLE LAB S Final Result Performing Organization Address City/State/[facility] Co de Phone Number [facility] [address] * HIV 1/2 ANTIGEN/ANTIBODY,FOURTH GENERATION W/RFL (03/08/2021 9:56 AM EST) HIV-1/2 ANTIGEN AND ANTIBODIES, 4TH GENERATION W/ REFLEX NON-REACT TYRONE NON-REACT TYRONE [facility] Comment: HIV-1 antigen and HIV-1/HIV-2 [...] purpose. For additional information please refer to http://Digby.Dot VN/faq/YMA318 (This link is being provided for informational/ educational purposes only.) The performance of this assay has not been clinically validated in patients less than 2 years old. 03/08/2021 9:56 AM EST us Dejah Good MD LAB BLOOD ORDERABLES Final R esult [facility] [address] * (ABNORMAL) LIPID PANEL, STANDARD (03/08/2021 [...] LDL-C. Elfego BRAY et al. JASMIN. 2013;310(19): 5355-6271 (http://education.Borqs.ThetaRay/faq/JVO971) Non-HDL Cholesterol 201(H) <130 mg/dL (calc) [facility] Comment: For patients with diabetes plus 1 major ASCVD risk factor, treating to a non-HDL-C goal of <100 mg/dL (LDL-C of <70 mg/dL) is considered a therapeutic option. Triglycerides 160(H) <150 mg/dL [facility] 03/08/2021 9:56 AM EST us Dejah Good MD LAB BLOOD ORDERABLES Final R esult [facility] [address] from Last 3 Months or Most Recently Relevant to Health Maintenance Insurance DENTAL - HSN FULL (MEDICAID) Care Teams Instrument And Electrical Technician Relationship Specialty Start Date End Date Krysta Davis ANP [address] [place] [phone] PCP - General Family Medicine 11/30/22
== END 2024-11-19 12:24 | disposition home or self-care (01) ==
LOC: HO.LAB 12:23
DX: R07.2 Precordial pain (principal)
CPT/HCPCS: 36415; 80048

== ENCOUNTER 2024-12-12 12:55 | Outpatient (AMB) | payer OTHER, SELFPAY ==
[2024-12-12 13:00] VITALS: BP 110/70; PULSE 66; TEMP 36.3; O2SAT 97; BMI 28.8
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
--- OUTSIDE RECORDS SUMMARY | 2024-12-12 14:18 | XMS_ITS | Clinical Summary ---
Author Organization [employer] Address [address] [place] [address] Care Team Providers Care Meat Specialist Name Role Phone Unavailable Primary Care Provider Unavailabl e Social History Tobacco Use Types Packs/Day Years [...] Done Comments CT Colonography 1972 Colonoscopy 1972 Depression Screening 1972 FIT 1972 SDOH Screening 1972 Sigmoidoscopy 1972 Disability [...] 2) 2022 COVID-19 Vaccine (3 - season) 2024 07/28/2020, 06/30/2020 Influenza Vaccine (#1) 2024 03/02/2021 FOBT 10/13/2025 10/13/2024 Lipid Panel 03/08/2026 03/08/2021 Colorectal Cancer Screening 10/14/2027 FIT DNA/Cologuard 10/14/2027 10/13/2024 DTaP/Tdap/Td Vaccines (3 - Td or Tdap) [...] a test for HCV RNA (test code 82475) is suggested. For additional information please refer to http://education.Reimage.Local Lift/faq/RJX40h9 (This link is being provided for informational/ educational purposes only.) 03/08/2021 9:56 AM EST us Dejah Good MD HISTORICAL/NON ORDERABLE LAB S Final Result [facility] [address] * HIV 1/2 ANTIGEN/ANTIBODY,FOURTH GENERATION W/RFL [...] purpose. For additional information please refer to http://education.Reimage.Local Lift/faq/TGB343 (This link is being provided for informational/ educational purposes only.) The performance of this assay has not been clinically validated in patients less than 2 years old. 03/08/2021 9:56 AM EST us Dejah Good MD LAB BLOOD ORDERABLES Final R esult [facility] [address] * (ABNORMAL) LIPID PANEL, STANDARD (03/08/2021 [...] LDL-C. Elfego BRAY et al. JASMIN. 2013;310(19): 0130-4329 (http://education.Cube Route.Local Lift/faq/JLU622) Non-HDL Cholesterol 201(H) <130 mg/dL (calc) [facility] [address] from Last 3 Months or Most Recently Relevant to Health Maintenance Insurance DENTAL - HSN FULL (MEDICAID)
== END 2024-12-12 13:27 | disposition home or self-care (01) ==
LOC: HO.HMCH 12:56
DX: R06.09 Other forms of dyspnea (principal); E78.00 Pure hypercholesterolemia, unspecified; R07.89 Other chest pain

== ENCOUNTER 2024-12-25 13:05 | Outpatient (AMB) | payer OTHER, SELFPAY ==
[2024-12-25 13:24] VITALS: BP 120/72; PULSE 50; BMI 29.0
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
== END 2024-12-25 14:02 | disposition home or self-care (01) ==
LOC: HO.HCS 13:06
PROVIDERS: Visit Provider Internal Medicine
DX: R06.09 Other forms of dyspnea (principal); R07.2 Precordial pain
CPT/HCPCS: 93010; 99214

== ENCOUNTER → 2024-12-25 13:05 | Outpatient (BNVA) | payer OTHER, SELFPAY | PROVIDERS: Visit Provider Internal Medicine | DX: R06.09 Other forms of dyspnea (principal); R07.2 Precordial pain | CPT/HCPCS: 93005 ==